=== PATIENT | female | born 1940 | race Hispanic/Latino ===

== ENCOUNTER 2021-08-22 11:35 | Emergency (ER) | payer MEDICARE ==
[~2021-08-22] VITALS: Ht 165.1 cm; Wt 65.8 kg
[2021-08-22 11:39] VITALS: BP 128/77
[2021-08-22] MEDS ORDERED: LORAZEPAM 0.5 MG TABLET PO SCH (12:00)
[2021-08-22 12:20] LABS: CREATININE 0.7 mg/dL (0.5-1.5); POTASSIUM 4.1 mmol/L (3.5-5.1)
[2021-08-22 12:24] LABS: ALBUMIN 3.9 g/dL (3.5-5.0); BILIRUBIN,TOTAL 0.3 mg/dL (0.2-1.0); TOTAL PROTEIN, SERUM 6.9 g/dL (6.0-8.3)
[2021-08-22 12:29] LABS: EOSINOPHILS % (AUTO) 6.8 % (0.0-8.0); HEMATOCRIT 33.4 % (36-48); LYMPHOCYTES % (AUTO) 10.1 % (21.0-51.0); MEAN CORPUSCULAR HEMOGLOBIN 31.3 pg (27.0-33.0); MEAN CORPUSCULAR HGB CONC 33.8 g/dL (32.0-36.0); MEAN CORPUSCULAR VOLUME 92.5 fL (79-99); MONOCYTES % (AUTO) 8.3 % (3.0-13.0); NEUTROPHILS % (AUTO) 73.4 % (40.0-77.0); PLATELET COUNT (AUTO) 222 K/uL (130-400); RED BLOOD CELL COUNT(AUTO) 3.61 MIL/uL (4.00-5.50); RED CELL DISTRIBUTION WIDTH 13.8 % (11.0-15.5); WHITE BLOOD COUNT (AUTO) 7.3 K/uL (4.8-10.8)
== END 2021-08-22 13:25 | disposition home or self-care (01) ==
LOC: EDH 11:35
DX: F41.9 Anxiety disorder, unspecified (principal); F43.0 Acute stress reaction; I10 Essential (primary) hypertension; M19.90 Unspecified osteoarthritis, unspecified site; F03.90 Unspecified dementia, unspecified severity, without behavioral disturbance, psychotic disturbance, mood disturbance, and anxiety
CPT/HCPCS: 36415; 71045; 80053; 84484; 85025

== ENCOUNTER 2024-10-12 18:59 | Observation (INO) | payer MEDICARE ==
[~2024-10-12] VITALS: Ht 152.4 cm; Wt 49.0 kg
--- NOTE | 2024-10-12 19:26 | ERN ---
ED Note History of Present Illness Stated Complaint: CONSTIPATION Chief Complaint: Constipation Time Seen by MD: 19:01 Dictation: Patient comes in she is telling me she had some pain in the chest. It has been some time ago she is not able to specify when per triage. She is coming in for constipation Allergies: Coded Allergies: No Allergy Information Available (Verified Allergy, Unknown, 08/22/21) Past Medical History Past Medical History: Arthritis, Dementia, Diabetes-Type II, High Cholesterol, Hypertension Surgical History: Unknown Review of System Dictation Constitutional: Negative for fever,chills, and weight loss Eyes: Negative for injury, pain,redness, and discharge ENT: Negative for injury,pain or swelling Cardiovascular: Chest pain Respiratory: Negative for shortness of breath, cough, and wheezing, Abdomen/GI: Negative for abdominal pain, nausea, vomiting, diarrhea, and constipation Back: Negative for injury and pain : Negative for injury, bleeding and discharge MS/Extremity: Negative for injury and deformity Skin: Negative for rash, and discoloration Neuro: Negative for headache, weakness, numbness, tingling, and seizure Psych: Negative for suicide ideation, homicidal ideation, and hallucinations Initial Vital Sign VS Vital Signs Date Time Temp Pulse Resp B/P (MAP) Pulse Ox O2 Delivery O2 Flow Rate FiO2 10/12/24 19:06 99.1 70 16 181/89 98 Room Air* 0 21 Physical Exam Dictation General: awake, alert, NAD Head/Face: Normocephalic, atraumatic Eyes: PERRL, EOMI, vision at baseline ENT: oral cavity clear, TMs clear, no signs of infection Neck: Trachea midline, supple, no nuchal rigidity Cardiovascular: RRR, normal S1/S2, No MRGs, no JVD Respiratory: CTAB, no respiratory distress, No rales or wheezes Abdomen: Soft, non-tender, non-distended, normal bowel sounds, no guarding or rebound. Skin: Warm, dry, normal turgor, no rash MS/Extremity: Pulses equal, no cyanosis, neurovascular intact, FROM Neuro: COAx4, GCS 15, strength 5/5, CN 2-12 intact, normal cerebellar exam, normal gait, Psych: Normal behavior, mood, and affect normal Results (Laboratory/Radiology) Laboratory/Radiology Laboratory Tests Test 10/12/24 20:11 10/12/24 22:44 10/13/24 03:39 White Blood Count 13.1 K/uL (4.8-10.8) H 9.3 K/uL (4.8-10.8) # Red Blood Count 4.00 MIL/uL (4.00-5.50) 3.40 MIL/uL (4.00-5.50) L Hemoglobin 12.3 g/dL (12.0-16.0) 10.4 g/dL (12.0-16.0) L Hematocrit 36.6 % (36-48) 30.9 % (36-48) L Mean Corpuscular Volume 91.5 fL (79-99) 90.9 fL (79-99) Mean Corpuscular Hemoglobin 30.8 pg (27.0-33.0) 30.6 pg (27.0-33.0) Mean Corpuscular Hemoglobin Concent 33.6 g/dL (32.0-36.0) 33.7 g/dL (32.0-36.0) Red Cell Distribution Width 12.7 % (11.0-15.5) 12.8 % (11.0-15.5) Platelet Count 239 K/uL (130-400) 200 K/uL (130-400) Mean Platelet Volume 9.7 fL (7.5-10.5) 10.1 fL (7.5-10.5) Immature Granulocyte % (Auto) 0.5 % (0-1) 0.4 % (0-1) Neutrophils (%) (Auto) 87.5 % (40.0-77.0) H 85.6 % (40.0-77.0) H Lymphocytes (%) (Auto) 3.8 % (21.0-51.0) L 4.5 % (21.0-51.0) L Monocytes (%) (Auto) 7.0 % (3.0-13.0) 8.0 % (3.0-13.0) Eosinophils (%) (Auto) 1.0 % (0.0-8.0) 1.3 % (0.0-8.0) Basophils (%) (Auto) 0.2 % (0.0-5.0) 0.2 % (0.0-5.0) Neutrophils # (Auto) 11.4 K/uL (1.8-7.7) H 7.9 K/uL (1.8-7.7) H Lymphocytes # (Auto) 0.5 K/uL (1.0-4.8) L 0.4 K/uL (1.0-4.8) L Monocytes # (Auto) 0.9 K/uL (0.1-1.0) 0.7 K/uL (0.1-1.0) Eosinophils # (Auto) 0.13 K/uL (0.00-0.70) 0.12 K/uL (0.00-0.70) Basophils # (Auto) 0.03 K/uL (0.00-0.20) 0.02 K/uL (0.00-0.20) Absolute Immature Granulocyte (auto 0.06 K/uL (0-1) 0.04 K/uL (0-1) Nucleated Red Blood Cells 0.0 % (0.0-0.19) 0.0 % (0.0-0.19) White Cell Morphology Comment See comments D-Dimer Quantitative (PE/DVT) 3005 ng/mL (0-500) *H Sodium Level 139 mmol/L (136-145) 141 mmol/L (136-145) Potassium Level 3.3 mmol/L (3.5-5.1) L 3.2 mmol/L (3.5-5.1) L Chloride Level 100 mmol/L (101-111) L 106 mmol/L (101-111) Carbon Dioxide Level 30 mmol/L (21-32) 28 mmol/L (21-32) Blood Urea Nitrogen 24 mg/dL (7-18) H 28 mg/dL (7-18) H Creatinine 0.9 mg/dL (0.5-1.0) 0.7 mg/dL (0.5-1.0) Glomerular Filtration Rate Calc 63 mL/min (>90) 85 mL/min (>90) Random Glucose 118 mg/dL (70-105) H 116 mg/dL (70-105) H Total Calcium 9.1 mg/dL (8.5-10.1) 8.6 mg/dL (8.5-10.1) Troponin I High Sensitivity 28 ng/L (4-50) 24 ng/L (4-50) Urine Color YELLOW (YELLOW) Urine Appearance CLEAR (CLEAR) Urine pH 6.0 (5.0-8.0) Urine Specific [place] 1.030 (1.001-1.031) Urine Protein 30 mg/dL (NEGATIVE) H Urine Glucose (UA) NEGATIVE mg/dL (NEGATIVE) Urine Ketones 5 mg/dL (NEGATIVE) H Urine Occult Blood NEGATIVE (NEGATIVE) Urine Nitrate NEGATIVE (NEGATIVE) Urine Bilirubin NEGATIVE mg/dL (NEGATIVE) Urine Urobilinogen 0.2 mg/dL (0.2-1.0) Urine Leukocyte Esterase NEGATIVE Efren/uL Urine RBC 2-5 /HPF (0-1) H Urine WBC 0-1 /HPF (0-1) Urine Bacteria RARE /HPF (None Seen) Hemoglobin A1c 6.3 % (4.0-6.0) H Estimated Average Glucose (eAG) 134 mg/dL (70-126) H Phosphorus Level 4.0 mg/dL (2.5-4.9) Magnesium Level 2.10 mg/dL (1.80-2.40) Thyroid Stimulating Hormone (TSH) 2.55 uIU/mL (0.36-3.74) ED Course ED Course Orders Procedure Category Date Status Time Cbc With Differential LAB 10/12/24 Complete 19:21 Chest 1vw RAD 10/12/24 Resulted 19:21 12 Lead Ekg Tracing- EKG 10/12/24 Logged Technical 19:21 Urinalysis Profile LAB 10/12/24 Complete 19:21 Troponin Poc Order LAB 10/12/24 Complete Only 19:21 Bedside Troponin-I LAB.ER 10/12/24 In Process (Poc) 19:21 Basic Metabolic Panel LAB 10/12/24 Complete 19:21 Ondansetron 4mg Inj PHA 10/12/24 Complete (Zofran 4mg Inj) 19:30 Ct Abdomen/Pelvis W/O CT 10/12/24 Resulted Contrast 19:23 Bedside Troponin-I LAB.ER 10/12/24 In Process (Poc) 20:46 Troponin I High LAB 10/12/24 Complete Sensitivity 22:03 Bedside Troponin-I LAB.ER 10/12/24 In Process (Poc) 22:03 Admit Orders ADM 10/12/24 Transmitted 22:53 Vital Signs Every 4 CPOE 10/12/24 Transmitted Hours 22:54 I&O Q Shift CPOE 10/12/24 Transmitted 22:54 Activity: Br W/Brp CPOE 10/12/24 Transmitted With Assist 22:54 Heart Healthy Diet DIET 10/13/24 Transmitted Breakfast O2 Order RT 10/12/24 Transmitted 22:54 Cbc With Differential LAB 10/13/24 Complete 04:00 Basic Metabolic Panel LAB 10/13/24 Complete 04:00 Magnesium LAB 10/13/24 Complete 04:00 Phosphorus LAB 10/13/24 Complete 04:00 D-Dimer LAB 10/12/24 Complete 23:00 Thyroid Stimulating LAB 10/13/24 Complete Hormone 04:00 Famotidine 20mg Tab PHA 10/13/24 In Process (Pepcid 20mg Tab) 09:00 Enoxaparin Sodium 40 PHA 10/13/24 In Process Mg/0.4 Ml (Lovenox) 09:00 Acetaminophen 325 Tab PHA 10/12/24 In Process (Tylenol 325mg Tab 23:00 Acetaminophen 650mg PHA 10/12/24 In Process Supp (Tylenol 650mg 23:00 Lactulose 20 Gm/30 Ml PHA 10/12/24 In Process Udcup (Constulose 23:00 Docusate Sodium 100 PHA 10/12/24 In Process Mg Cap (Colace 100mg 23:00 Temazepam 15 Mg Cap PHA 10/12/24 In Process (Restoril 15 Mg Cap) 23:00 Ondansetron 4mg Inj PHA 10/12/24 In Process (Zofran 4mg Inj) 23:00 Labetalol 20mg Syg PHA 10/12/24 In Process (Trandate 20mg Syg) 23:00 Telemetry Monitoring CPOE 10/12/24 Transmitted 22:54 Initiate PATRIC 10/12/24 In Process Hyperglycemia Protoco 22:54 Insulin Regular, PHA 10/13/24 In Process Human 3ml (Humulin R 07:30 Hemoglobin A1c LAB 10/13/24 Complete 04:00 Troponin I High LAB 10/13/24 Complete Sensitivity 02:00 Troponin I High LAB 10/13/24 Logged Sensitivity 08:00 Troponin I High LAB 10/13/24 Logged Sensitivity 14:00 Troponin I High LAB 10/13/24 Logged Sensitivity 20:00 Nitroglycerin 0.4mg PHA 10/12/24 In Process Sl Tab (Nitrostat) 23:30 12 Lead Ekg Tracing- EKG 10/13/24 Logged Technical 04:00 Aspirin 81mg Chew Tab PHA 10/13/24 In Process (Aspirin 81mg Chew 09:00 Aspirin 81mg Chew Tab PHA 10/12/24 Complete (Aspirin 81mg Chew 23:30 Atorvastatin 40mg PHA 10/12/24 In Process (Lipitor 40mg) 23:10 Lidocaine (Lidocaine PHA 10/13/24 Complete Patch 4%) 00:00 Ct Chest Pe Protocol CT 10/13/24 Logged Wwo Cont 00:55 Us Venous Doppler US 10/13/24 Taken Bilateral 00:55 Iohexol (Omnipaque) PHA 10/13/24 Complete 01:13 Current Medications Medications (Trade) Dose Ordered Sig/Rossana Route PRN Reason Start Time Stop Time Status Last Admin Dose Admin Ondansetron HCl (zoFRAN 4MG INJ) 4 mg ONCE ONCE IVP 10/12/24 19:30 10/12/24 19:31 DC Vital Signs Date Time Temp Pulse Resp B/P (MAP) Pulse Ox O2 Delivery O2 Flow Rate FiO2 10/13/24 03:48 98.4 18 136/64 97 Room Air* 0 10/13/24 01:43 67 18 147/79 98 Room Air* 0 10/13/24 00:43 73 14 146/69 97 Room Air* 0 10/13/24 00:21 75 178/82 10/13/24 00:14 76 16 178/82 98 Room Air* 0 10/12/24 22:53 95 Room Air* 0 10/12/24 22:15 98.8 78 20 168/89 97 Room Air* 0 10/12/24 19:08 99.1 70 16 181/89 98 Room Air 0 10/12/24 19:06 99.1 70 16 181/89 98 Room Air* 0 21 Medical Decision Making MDM Unsure about patient's baseline if she has dementia. By the way given her age and risk factors. To ACS workup. Abdominal pain workup DX & DISP Disposition: Inpatient Departure Impression: Primary Impression: Hypertension Condition: Stable Referrals: MAIRA JACKSON MD (PCP) KARON PIPER MD Oct 12, 2024 19:26
[2024-10-12] MEDS: ondanSETRON 4MG INJ IVP ONE (19:30)
--- NOTE | 2024-10-12 20:06 | HMCIMG ---
CHEST 1VW HISTORY: Chest pain COMPARISON: 08/22/2021 FINDINGS: A frontal projection of the chest was obtained. Prominent interstitial markings are seen with possible superimposed infiltrates. The heart is normal in size. Degenerative changes are seen. Aortic calcifications are seen. IMPRESSION: 1. Prominent interstitial markings are seen with possible superimposed infiltrates.
--- NOTE | 2024-10-12 20:10 | HMCIMG ---
CT ABDOMEN/PELVIS W/O CONTRAST HISTORY: Abdominal pain COMPARISON: None TECHNIQUE: Multiple sequential axial images of the abdomen and pelvis were obtained from the dome of the diaphragm through symphysis pubis. Patient was not given contrast through intravenous route. Oral contrast was not given. FINDINGS: No pleural effusion is seen bilaterally. There is no evidence of parenchymal disease or pulmonary nodule of the visualized lower lungs. Degenerative changes of the thoracolumbar spine are present. The heart is not enlarged. Coronary arterial calcifications are seen. Endplate degenerative changes with disc space narrowing are seen at L4-5 and L5-S1 levels. There are intrahepatic biliary air. Gallbladder is distended with small amount of air collection. This gallstone in the gallbladder. Patient was given contrast previously with contrast in the bladder. The liver, spleen, adrenal glands and pancreas are unremarkable. There is no evidence of hydronephrosis bilaterally. No evidence of renal stone is seen. Fecal material is seen in the colon. There are normal size retroperitoneal and mesenteric lymph nodes. No ascites is seen. Atherosclerotic changes are present. Calcification is seen within the uterus is suspicious for fibroid uterus. Postop changes are seen of left proximal femur. Pelvic sidewalls are symmetric bilaterally. Bladder is well distended without wall thickening. IMPRESSION: 1. Large amount of fecal material is seen in the colon suggestive of constipation. Gallstones are seen in the distended gallbladder. There appears to be common duct stone. Common duct measures [address] was performed with one or more following dose reduction techniques: automated exposure control, adjustment of the mA and kv according to patient's size, or use of a iterative reconstruction technique.
[2024-10-12 20:21] LABS: BASOPHILS # (AUTO) 0.03 K/uL (0.00-0.20); BASOPHILS % (AUTO) 0.2 % (0.0-5.0); EOSINOPHILS # (AUTO) 0.13 K/uL (0.00-0.70); HEMATOCRIT 36.6 % (36-48); IMMATURE GRANULOCYTE ABSOLUTE 0.06 K/uL (0-1); LYMPHOCYTES # (AUTO) 0.5 K/uL (1.0-4.8); LYMPHOCYTES % (AUTO) 3.8 % (21.0-51.0); MEAN CORPUSCULAR HEMOGLOBIN 30.8 pg (27.0-33.0); MEAN CORPUSCULAR HGB CONC 33.6 g/dL (32.0-36.0); MEAN CORPUSCULAR VOLUME 91.5 fL (79-99); MONOCYTES # (AUTO) 0.9 K/uL (0.1-1.0); NEUTROPHILS # (AUTO) 11.4 K/uL (1.8-7.7); NEUTROPHILS % (AUTO) 87.5 % (40.0-77.0); PLATELET COUNT (AUTO) 239 K/uL (130-400); RED CELL DISTRIBUTION WIDTH 12.7 % (11.0-15.5); WHITE BLOOD COUNT (AUTO) 13.1 K/uL (4.8-10.8)
[2024-10-12 20:34] LABS: CREATININE 0.9 mg/dL (0.5-1.0); POTASSIUM 3.3 mmol/L (3.5-5.1)
--- NOTE | 2024-10-12 22:10 | NUR ---
assumed pt care at this time
[2024-10-12 22:53] VITALS: O2SAT 95
[2024-10-12 22:55] LABS: APPEARANCE,URINE CLEAR (CLEAR); BILIRUBIN,URINE NEGATIVE (NEGATIVE); COLOR,URINE YELLOW (YELLOW); GLUCOSE, URINE (UA) NEGATIVE (NEGATIVE); KETONES,URINE 5 mg/dL (NEGATIVE); LEUKOCYTE ESTERASE ,URINE NEGATIVE Leu/uL (NEGATIVE); NITRATE,URINE NEGATIVE (NEGATIVE); OCCULT BLOOD,URINE NEGATIVE (NEGATIVE); PROTEIN,URINE 30 mg/dL (NEGATIVE); UROBILINOGEN,URINE 0.2 mg/dL (0.2-1.0)
--- NOTE | 2024-10-12 22:55 | HP ---
[facility] HISTORY & PHYSICAL Date Patient Seen: Oct 12, 2024 Time of Visit: 22:55 Supervising Physician: Dr. Juan Diego Curtis Primary Care Physician: Dr. Zachery Mathis Outpatient Specialists: Inpatient Consults: PROBLEM LIST: Cholelithiasis Common duct stones Leukocytosis Hypokalemia Acute mid back pain Critically elevated troponin, rule out DVT and PE Possible acute chest pain (per family member), x2 negative troponin (Patient denied having chest pain.) Acute constipation Uncontrolled hypertension Chronic problem list: arthritis, dementia, DM type 2, hypercholesteremia, hypertension HPI: Ms. Worrell is a 84-year-old female with a history of arthritis, dementia, DM type 2, hypercholesteremia, hypertension who presented to [facility] for evaluation of a chest pain, constipation, and back pain. RN reports that son brought patient for chest pain. Son left shortly after he brought the patient. The patient is a poor historian due to dementia. The patient states that she did not have chest pain. She states that she told her son and nephew who she lives with that she had severe mid back pain which prompted the ED visit. The patient reports the back pain is exacerbated by movement and reports that she believes it is due to her constipation. Patient denied having chest pain. Troponin x2 WNL. UA negative for leuk EST. CT abdomen and pelvis without contrast: Large amount of fecal material is seen in the colon suggestive of constipation. Gallstones are seen in the distended gallbladder. There appears to be common duct stone. Common duct measures 8 mm. Remarkable lab results: WBCs 13.1, K 3.3, chloride 100, BUN 24, creatinine 0.9, glucose 118, D-dimer 3005. I went to assess the patient at bedside. Patient reports back pain is improved with lidocaine patch. Patient continues to deny any chest pain. No family at bedside to sign consent for CTA chest PE protocol. I informed patient of remarkable labs, diagnostics, and plan of care. Patient verbalized understanding and is in agreement with the plan. Plan and assessment as listed below. PAST MEDICAL HX: see above PAST SURGICAL HX: noncontributory SOCIAL HISTORY: No tobacco, ETOH, or illicit drug use Coded Allergies: No Allergy Information Available (Verified Allergy, Unknown, 08/22/21) REVIEW OF SYSTEMS: Unable to obtain ROS from patient due to medical history, dementia. PHYSICAL EXAM: GENERAL: Alert, awake oriented x 3 (person, place, situation. Not oriented to time/month) HEENT: EOMI, Sclera non icteric, moist mucosa NECK: Supple, no JVD, trachea midline LUNGS: Clear breath sounds bilaterally. No wheezes HEART: Regular rate and rhythm. Normal S1 and S2, without murmurs ABD: Abdomen soft, nontender. Bowel sounds present EXT: No clubbing cyanosis or edema NEURO: Alert and oriented x3, follows commands. No neuro deficits noted. Vital Signs (last 8hr) Date Time Temp Pulse Resp B/P (MAP) Pulse Ox O2 Delivery O2 Flow Rate FiO2 10/12/24 19:08 99.1 70 16 181/89 98 Room Air 0 10/12/24 19:06 99.1 70 16 181/89 98 Room Air* 0 21 LABS: Hematology Labs: Test 10/12/24 20:11 Range/Units White Blood Count 13.1 H 4.8-10.8 K/uL Red Blood Count 4.00 4.00-5.50 MIL/uL Hemoglobin 12.3 12.0-16.0 g/dL Hematocrit 36.6 36-48 % Mean Corpuscular Volume 91.5 79-99 fL Mean Corpuscular Hemoglobin 30.8 27.0-33.0 pg Mean Corpuscular Hemoglobin Concent 33.6 32.0-36.0 g/dL Red Cell Distribution Width 12.7 11.0-15.5 % Platelet Count 239 130-400 K/uL Mean Platelet Volume 9.7 7.5-10.5 fL Immature Granulocyte % (Auto) 0.5 0-1 % Neutrophils (%) (Auto) 87.5 H 40.0-77.0 % Lymphocytes (%) (Auto) 3.8 L 21.0-51.0 % Monocytes (%) (Auto) 7.0 3.0-13.0 % Eosinophils (%) (Auto) 1.0 0.0-8.0 % Basophils (%) (Auto) 0.2 0.0-5.0 % Neutrophils # (Auto) 11.4 H 1.8-7.7 K/uL Lymphocytes # (Auto) 0.5 L 1.0-4.8 K/uL Monocytes # (Auto) 0.9 0.1-1.0 K/uL Eosinophils # (Auto) 0.13 0.00-0.70 K/uL Basophils # (Auto) 0.03 0.00-0.20 K/uL Absolute Immature Granulocyte (auto 0.06 0-1 K/uL Nucleated Red Blood Cells 0.0 0.0-0.19 % White Cell Morphology Comment See comments Chemistry Labs: Test 10/12/24 20:11 Range/Units Sodium Level 139 136-145 mmol/L Potassium Level 3.3 L 3.5-5.1 mmol/L Chloride Level 100 L 101-111 mmol/L Carbon Dioxide Level 30 21-32 mmol/L Blood Urea Nitrogen 24 H 7-18 mg/dL Creatinine 0.9 0.5-1.0 mg/dL Glomerular Filtration Rate Calc 63 >90 mL/min Random Glucose 118 H 70-105 mg/dL Total Calcium 9.1 8.5-10.1 mg/dL Troponin I High Sensitivity 28 4-50 ng/L DIAGNOSTICS / RADIOLOGY RESULTS: [ ] PLAN Admit to medical floor with telemetry monitoring. P.r.n. medications for: Pain management, nausea, vomiting, constipation, hypertension. Reconcile home medications once available. Obtain sonogram all the gallbladder. Aspirin 81 mg p.o. daily. Atorvastatin 40 mg p.o. daily. Trend troponin and EKGs. Obtain echocardiogram. Monitor renal and liver function. Monitor electrolytes and treat accordingly. Glucometer checks a.c. and HS with insulin regular sliding scale. Blood pressure 4 hours and p.r.n.. DVT and GI prophylaxis: Pepcid and Lovenox. A.m. labs. NEURO: Minimize central acting medications as possible. Maintain fall precautions, adequate lighting during the day PULMONARY: Supplemental 02 as needed. Maintain aspiration precautions at all times CARDIOVASCULAR: Follow hemodynamics. Vital signs per facility protocol GI & NUTRITION: Continue with nutritional support. Continue stool softeners and laxatives as needed. KIDNEYS & ELECTROLYTES: Strict monitoring of intake, output and overall fluid balance. Avoid nephrotoxic medications to the extent possible. Medications to be dosed according to renal function. Monitor electrolytes and replace as needed ENDOCRINE: Maintain blood glucose between 100-180 at all times. Hypoglycemia protocol in place INFECTIOUS DISEASE: Trend temperature, WBC and procalcitonin level Follow cultures, deescalate antibiotics as soon as possible. Panculture if new onset fever ONCOLOGY/HEMATOLOGY/COAGULATION: Monitor for s/s of bleeding Monitor hemoglobin, coagulation studies as needed SKIN: Pressure ulcer prevention per facility protocol Specialty mattress ORTHO/REHAB: Continue PT/OT Prophylaxis: Continue GI and DVT prophylaxis Code Status: Full Resuscitation Disposition: JASS RENDON Oct 12, 2024 22:55
[2024-10-12] MEDS ORDERED: TEMAZepam 15 MG CAPSULE PO PRN (23:00)
[2024-10-12] MEDS ORDERED: doCUSate SODIUM 100 MG CAP PO PRN (23:00)
[2024-10-12] MEDS ORDERED: acetaMINOPHEN 650 MG SUPPOSITORY RC PRN (23:00)
[2024-10-12] MEDS ORDERED: ondanSETRON 4MG INJ IVP PRN (23:00)
--- NOTE | 2024-10-12 23:00 | NUR ---
unable to reconcile medication due to patient not remembering names or dosages. no family members at bedside.
[2024-10-12 23:07] LABS: ADD UA MICROSCOPIC YES
[2024-10-12 23:09] LABS: BACTERIA,URINE RARE /HPF (None Seen); WBC,URINE 0-1 /HPF (0-1)
[2024-10-12] MEDS ORDERED: NITROGLYCERIN 0.4 MG SL TAB SL PRN (23:30)
[2024-10-12] MEDS: ASPIRIN 81MG CHEW TAB PO ONE (23:53)
[2024-10-12] MEDS: LACTULOSE 20 GM/30 ML UDCUP PO PRN (23:53)
[2024-10-12] MEDS: atorVAStatin 40 MG TABLET PO SCH (23:53)
[2024-10-12] MEDS: LIDOCAINE 4% ADH..PATCH TP ONE (23:53)
[2024-10-13] MEDS: LAbetaLOL 20MG SYG IV PRN (00:21)
--- NOTE | 2024-10-13 01:07 | NUR ---
patient has hx of dementia, attempted to call patient's son for cta consent no answer, naila donovan made aware.
[2024-10-13] MEDS ORDERED: IOHEXOL 350 MG/ML 100ML INFUS..BTL IV ONE (01:13)
--- NOTE | 2024-10-13 01:18 | NUR ---
CT ON HOLD PENDING CONSENT, PT HAS DEMENTIA. SON IS NO PRESENT AT THIS TIME TO CONSENT
[2024-10-13 03:46] LABS: BASOPHILS # (AUTO) 0.02 K/uL (0.00-0.20); BASOPHILS % (AUTO) 0.2 % (0.0-5.0); EOSINOPHILS # (AUTO) 0.12 K/uL (0.00-0.70); EOSINOPHILS % (AUTO) 1.3 % (0.0-8.0); HEMATOCRIT 30.9 % (36-48); IMMATURE GRANULOCYTE ABSOLUTE 0.04 K/uL (0-1); LYMPHOCYTES # (AUTO) 0.4 K/uL (1.0-4.8); LYMPHOCYTES % (AUTO) 4.5 % (21.0-51.0); MEAN CORPUSCULAR HEMOGLOBIN 30.6 pg (27.0-33.0); MEAN CORPUSCULAR HGB CONC 33.7 g/dL (32.0-36.0); MEAN CORPUSCULAR VOLUME 90.9 fL (79-99); MONOCYTES # (AUTO) 0.7 K/uL (0.1-1.0); NEUTROPHILS # (AUTO) 7.9 K/uL (1.8-7.7); NEUTROPHILS % (AUTO) 85.6 % (40.0-77.0); PLATELET COUNT (AUTO) 200 K/uL (130-400); RED CELL DISTRIBUTION WIDTH 12.8 % (11.0-15.5); WHITE BLOOD COUNT (AUTO) 9.3 K/uL (4.8-10.8)
[2024-10-13 04:01] LABS: HEMOGLOBIN A1C 6.3 % (4.0-6.0)
[2024-10-13 04:10] LABS: CREATININE 0.7 mg/dL (0.5-1.0); POTASSIUM 3.2 mmol/L (3.5-5.1)
[2024-10-13 04:11] LABS: MAGNESIUM 2.1 mg/dL (1.80-2.40); THYROID STIMULATING HORMONE 2.55 uIU/mL (0.36-3.74)
--- NOTE | 2024-10-13 05:19 | EKG ---
[facility] Test Date: 2024-10-12 Test Time: 19:42:30 Pat Name: SAI WEN Department: EDHIP Room: ED 14 Gender: F Air Quality Instrument Specialist: [id number] : 1940 Requested By: KARON PIPER Order Number: [id number] Reading MD: Sammi Nguyen Measurements Intervals [place] Rate: 73 P: -21 AL: 120 QRS: 0 QRSD: 133 T: 2 QT: 404 QTc: 446 Interpretive Statements Sinus rhythm Right bundle branch block Borderline ST elevation, lateral leads No previous ECG available for comparison Electronically Signed On 10-13-2024 18:09:55 TINT LAYER by Sammi Nguyen Please click the below link to view image of tracing.
--- NOTE | 2024-10-13 05:19 | EKG ---
[facility] Test Date: 2024-10-13 Test Time: 04:19:54 Pat Name: SAI WEN Department: EDHIP Room: ED 14 Gender: F Geospatial Developer: [id number] : 1940 Requested By: JASS ROMAN Order Number: [id number] Reading MD: Sammi Nguyen Measurements Intervals [place] Rate: 66 P: -14 MN: 125 QRS: 0 QRSD: 137 T: 7 QT: 443 QTc: 465 Interpretive Statements Sinus rhythm Right bundle branch block Compared to ECG 10/12/2024 19:42:30 ST (T wave) deviation no longer present Electronically Signed On 10-13-2024 18:09:08 CLOTH MERCERIZING SUPERVISOR by Sammi Nguyen Please click the below link to view image of tracing.
--- NOTE | 2024-10-13 05:37 | NUR ---
attempted to contact patient's son, no answer at this time
[2024-10-13] MEDS: PoTASSium chl 10% ELIXIR 20MEQ 20 MEQ/15 ML UDCUP PO PRN (05:57)
[2024-10-13] MEDS ORDERED: PoTASSium chloRIDE 20MEQ ER 20 MEQ ERTAB PO PRN ×2 (06:00)
[2024-10-13] MEDS ORDERED: PoTASSium chloRIDE 10MEQ/100ML 100 ML IV PRN (06:00)
[2024-10-13] MEDS ORDERED: MAGNESIUM 2GM PREMIX 50ML 50 ML IV PRN (06:00)
[2024-10-13] MEDS ORDERED: PoTASSium chl 10% ELIXIR 20MEQ 20 MEQ/15 ML UDCUP PO PRN (06:00)
[2024-10-13] MEDS ORDERED: PoTASSium chloRIDE 20MEQ/100ML 100 ML IV PRN (06:00)
[2024-10-13] MEDS: INSULIN humuLIN R 100 UNIT/ML 3ML SQ SCH (07:30)
[2024-10-13] MEDS: ENOXAPARIN SODIUM 40 MG/0.4 ML SYRINGE SQ SCH (08:26)
[2024-10-13] MEDS: BisaCODYL 10 MG SUPP.RECT RC ONE (08:26)
[2024-10-13] MEDS: FAMOTIDINE 20MG TAB PO SCH (08:27)
[2024-10-13] MEDS: BisaCODYL 5 MG TABLET.DR PO SCH (08:27)
[2024-10-13] MEDS: ASPIRIN 81MG CHEW TAB PO SCH (08:27)
--- NOTE | 2024-10-13 08:58 | HMCIMG ---
Exam Type: US ABDOMINAL RUQ\E\LTD Clinical Information: cholelithiasis. r/o common duct stone Comparison: None Findings: The liver shows normal echogenicity and size. No hepatic lesions are seen. Doppler evaluation shows patent portal and hepatic veins. The gallbladder shows cholelithiasis and sludge. No acute or chronic inflammation is noted. The gallbladder is hydropic. The gallbladder wall measures 2 mm No bile duct dilatation is noted. The common bile duct measures 4 mm. The right kidney measures 9.7 x 4.2 cm, and shows no hydronephrosis or calculi, masses or other abnormalities. The pancreas is obscured. The aorta and inferior vena cava show no significant abnormalities. IMPRESSION: Cholelithiasis and gallbladder sludge
--- NOTE | 2024-10-13 09:01 | HMCIMG ---
Exam Type: US VENOUS DOPPLER BILATERAL Clinical Information: elevated DDIMER Comparison: None Findings: The examination shows normal deep venous system. There is normal compressibility at all levels. There is no intraluminal clot. There is no occlusion. Adequate response is obtained on augmentation. Impression: No evidence of DVT.
[2024-10-13] MEDS: polyETHYLene GLYCol 3350 17 GM POWD.PACK PO SCH (09:26)
--- NOTE | 2024-10-13 11:39 | NUR ---
CT PE ON HOLD NO CONSENT FROM FAMILY MEMBER AT THIS TIME. PT REFUSING EXAM WANTING TO GET DISCHARGED. MUNA DOWNEY WILL CALL BACK.
--- NOTE | 2024-10-13 12:18 | PN ---
[facility] PROGRESS NOTE Date Patient Seen: Oct 13, 2024 Time of Visit: 12:06 Supervising Physician: Dr Acharya Primary Care Physician: Dr. Zachery Mathis Outpatient Specialists: Inpatient Consults: PROBLEM LIST: Choledocholithiasis ruled out by US Leukocytosis Hypokalemia Possible acute chest pain (per family member), x2 negative troponin (Patient denied having chest pain.) Acute constipation Uncontrolled hypertension Chronic problem list: arthritis, dementia, DM type 2, hypercholesteremia, hypertension Plan Summary: Supplemental oxygen as needed [id number] g daily Bisacodyl 10 mg daily KUB in a.m. Start on clear liquid diet and advance as tolerated PT to evaluate and treat Out of bed to chair and ambulate Dispo: Home INTERVAL HISTORY: Ms. Worrell is a 84-year-old female with a history of arthritis, dementia, DM type 2, hypercholesteremia, hypertension who presented to [facility] for evaluation of a chest pain, constipation, and back pain. RN reports that son brought patient for chest pain. Son left shortly after he brought the patient. The patient is a poor historian due to dementia. The patient states that she did not have chest pain. She states that she told her son and nephew who she lives with that she had severe mid back pain which prompted the ED visit. The patient reports the back pain is exacerbated by movement and reports that she believes it is due to her constipation. Patient denied having chest pain. Troponin x2 WNL. UA negative for leuk EST. CT abdomen and pelvis without contrast: Large amount of fecal material is seen in the colon suggestive of constipation. Gallstones are seen in the distended gallbladder. There appears to be common duct stone. Common duct measures 8 mm. Remarkable lab results: WBCs 13.1, K 3.3, chloride 100, BUN 24, creatinine 0.9, glucose 118, D-dimer 3005. I went to assess the patient at bedside. Patient reports back pain is improved with lidocaine patch. Patient continues to deny any chest pain. No family at bedside to sign consent for CTA chest PE protocol. I informed patient of remarkable labs, diagnostics, and plan of care. Patient verbalized understanding and is in agreement with the plan. Plan and assessment as listed below. 10/13 - patient is seen and evaluated at the ED. Patient is seen sitting up in stretcher does not appear to be in any acute distress at this time. Patient is awake alert and oriented x2. Patient does periods of confusion secondary to her dementia. The patient denies any chest discomfort, chest pain or dyspnea at this time. Troponins have been negative. Patient had a CT of the abdomen which showed constipation as well as gallstones and seen a distended gallbladder. Patient had abdominal ultrasound which showed cholelithiasis and gallbladder sludge without bile duct dilatation. On exam patient has negative Patel's sign. Patient to be administered stool softeners. Patient is adamant she wants to go home. We will obtain a KUB after she has bowel movement and possibly sent home. Vital signs are stable. Labs show white count has trended down within normal limits. Labs did show some electrolyte derangements which have been replaced via protocol. We will repeat labs. We will plan to DC home in a.m. REVIEW OF SYSTEMS: Unable to obtain ROS from patient due to medical history, dementia. PHYSICAL EXAM: GENERAL: Alert, awake oriented x 3 (person, place, situation. Not oriented to time/month) HEENT: EOMI, Sclera non icteric, moist mucosa NECK: Supple, no JVD, trachea midline LUNGS: Clear breath sounds bilaterally. No wheezes HEART: Regular rate and rhythm. Normal S1 and S2, without murmurs ABD: Abdomen soft, nontender. Bowel sounds present EXT: No clubbing cyanosis or edema NEURO: Alert and oriented x3, follows commands. No neuro deficits noted. Vital Signs (last 8hr) Date Time Temp Pulse Resp B/P (MAP) Pulse Ox O2 Delivery O2 Flow Rate FiO2 10/13/24 08:33 99.0 72 16 142/72 96 Room Air* 0 21 10/13/24 06:20 98.2 72 16 142/72 96 Room Air* 0 21 LABS: Hematology Labs: Test 10/13/24 03:39 10/12/24 20:11 Range/Units White Blood Count 9.3 # 4.8-10.8 K/uL Red Blood Count 3.40 L 4.00-5.50 MIL/uL Hemoglobin 10.4 L 12.0-16.0 g/dL Hematocrit 30.9 L 36-48 % Mean Corpuscular Volume 90.9 79-99 fL Mean Corpuscular Hemoglobin 30.6 27.0-33.0 pg Mean Corpuscular Hemoglobin Concent 33.7 32.0-36.0 g/dL Red Cell Distribution Width 12.8 11.0-15.5 % Platelet Count 200 130-400 K/uL Mean Platelet Volume 10.1 7.5-10.5 fL Immature Granulocyte % (Auto) 0.4 0-1 % Neutrophils (%) (Auto) 85.6 H 40.0-77.0 % Lymphocytes (%) (Auto) 4.5 L 21.0-51.0 % Monocytes (%) (Auto) 8.0 3.0-13.0 % Eosinophils (%) (Auto) 1.3 0.0-8.0 % Basophils (%) (Auto) 0.2 0.0-5.0 % Neutrophils # (Auto) 7.9 H 1.8-7.7 K/uL Lymphocytes # (Auto) 0.4 L 1.0-4.8 K/uL Monocytes # (Auto) 0.7 0.1-1.0 K/uL Eosinophils # (Auto) 0.12 0.00-0.70 K/uL Basophils # (Auto) 0.02 0.00-0.20 K/uL Absolute Immature Granulocyte (auto 0.04 0-1 K/uL Nucleated Red Blood Cells 0.0 0.0-0.19 % White Cell Morphology Comment See comments Chemistry Labs: Test 10/13/24 08:12 10/13/24 07:46 10/13/24 03:39 Range/Units Whole Blood Glucose 134 H 70-110 MG/DL Troponin I High Sensitivity 24 4-50 ng/L Sodium Level 141 136-145 mmol/L Potassium Level 3.2 L 3.5-5.1 mmol/L Chloride Level 106 101-111 mmol/L Carbon Dioxide Level 28 21-32 mmol/L Blood Urea Nitrogen 28 H 7-18 mg/dL Creatinine 0.7 0.5-1.0 mg/dL Glomerular Filtration Rate Calc 85 >90 mL/min Random Glucose 116 H 70-105 mg/dL Hemoglobin A1c 6.3 H 4.0-6.0 % Estimated Average Glucose (eAG) 134 H 70-126 mg/dL Total Calcium 8.6 8.5-10.1 mg/dL Phosphorus Level 4.0 2.5-4.9 mg/dL Magnesium Level 2.10 1.80-2.40 mg/dL Thyroid Stimulating Hormone (TSH) 2.55 0.36-3.74 uIU/mL Coagulation Labs: Test 10/12/24 20:11 Range/Units D-Dimer Quantitative (PE/DVT) 3005 *H 0-500 ng/mL DIAGNOSTICS / RADIOLOGY RESULTS: PATIENT: SAI WORRELL MR#: [id number] : 1940 SEX: F AGE: 84 LOCATION: [facility] ORDER 0715 STATUS: ADM IN REPORT#: [id number] SERVICE 0713 REASON: cholelithiasis. r/o common duct stone ORDERING PHYSICIAN: JASS ROMANP PROCEDURE: ABDRUQLTD - US ABDOMINAL RUQ\LTD Exam Type: US ABDOMINAL RUQ\E\LTD Clinical Information: cholelithiasis. r/o common duct stone Comparison: None Findings: The liver shows normal echogenicity and size. No hepatic lesions are seen. Doppler evaluation shows patent portal and hepatic veins. The gallbladder shows cholelithiasis and sludge. No acute or chronic inflammation is noted. The gallbladder is hydropic. The gallbladder wall measures 2 mm No bile duct dilatation is noted. The common bile duct measures 4 mm. The right kidney measures 9.7 x 4.2 cm, and shows no hydronephrosis or calculi, masses or other abnormalities. The pancreas is obscured. The aorta and inferior vena cava show no significant abnormalities. IMPRESSION: Cholelithiasis and gallbladder sludge DICTATED BY: ANALIA RICE MD DATE: 10/13/2454 ELECTRONICALLY SIGNED BY: ANALIA RICE MD DATE: 10/13/2458 PATIENT: SAI WORRELL MR#: [id number] : 1940 SEX: F AGE: 84 LOCATION: [facility] ORDER 0059 STATUS: ADM IN [facility] REPORT#: [id number] SERVICE 0055 REASON: elevated DDIMER ORDERING PHYSICIAN: JASS ROMAN CAREER COUNSELOR PROCEDURE: VENOUS JOSÉ - US VENOUS DOPPLER BILATERAL Exam Type: US VENOUS DOPPLER BILATERAL Clinical Information: elevated DDIMER Comparison: None Findings: The examination shows normal deep venous system. There is normal compressibility at all levels. There is no intraluminal clot. There is no occlusion. Adequate response is obtained on augmentation. Impression: No evidence of DVT. DICTATED BY: ANALIA RICE MD DATE: 10/13/2459 ELECTRONICALLY SIGNED BY: ANALIA RICE MD DATE: 10/13/24900 PATIENT: SAI WORRELL MR#: [id number] : 1940 SEX: F AGE: 84 LOCATION: [facility] ORDER 23 STATUS: REG REPORT#: [id number] SERVICE 22 REASON: ABD PAIN ORDERING PHYSICIAN: KARON PIPER MD PROCEDURE: ABD PEL WO - CT ABDOMEN/PELVIS W/O CONTRAST CT ABDOMEN/PELVIS W/O CONTRAST HISTORY: Abdominal pain COMPARISON: None TECHNIQUE: Multiple sequential axial images of the abdomen and pelvis were obtained from the dome of the diaphragm through symphysis pubis. Patient was not given contrast through intravenous route. Oral contrast was not given. FINDINGS: No pleural effusion is seen bilaterally. There is no evidence of parenchymal disease or pulmonary nodule of the visualized lower lungs. Degenerative changes of the thoracolumbar spine are present. The heart is not enlarged. Coronary arterial calcifications are seen. Endplate degenerative changes with disc space narrowing are seen at L4-5 and L5-S1 levels. There are intrahepatic biliary air. Gallbladder is distended with small amount of air collection. This gallstone in the gallbladder. Patient was given contrast previously with contrast in the bladder. The liver, spleen, adrenal glands and pancreas are unremarkable. There is no evidence of hydronephrosis bilaterally. No evidence of renal stone is seen. Fecal material is seen in the colon. There are normal size retroperitoneal and mesenteric lymph nodes. No ascites is seen. Atherosclerotic changes are present. Calcification is seen within the uterus is suspicious for fibroid uterus. Postop changes are seen of left proximal femur. Pelvic sidewalls are symmetric bilaterally. Bladder is well distended without wall thickening. IMPRESSION: 1. Large amount of fecal material is seen in the colon suggestive of constipation. Gallstones are seen in the distended gallbladder. There appears to be common duct stone. Common duct measures [address] was performed with one or more following dose reduction techniques: automated exposure control, adjustment of the mA and kv according to patient's size, or use of a iterative reconstruction technique. DICTATED BY: EVELYN LEAL MD DATE: 10/12/242004 ELECTRONICALLY SIGNED BY: EVELYN LEAL MD DATE: 10/12/242009 IMAGING REPORT Signed PATIENT: SAI WORRELL MR#: [id number] : 1940 SEX: F AGE: 84 LOCATION: [facility] ORDER 21 STATUS: REG REPORT#: [id number] SERVICE 20 REASON: cp ORDERING PHYSICIAN: KARON PIPER MD PROCEDURE: CXR1VW - CHEST 1VW CHEST 1VW HISTORY: Chest pain COMPARISON: 08/22/2021 FINDINGS: A frontal projection of the chest was obtained. Prominent interstitial markings are seen with possible superimposed infiltrates. The heart is normal in size. Degenerative changes are seen. Aortic calcifications are seen. IMPRESSION: 1. Prominent interstitial markings are seen with possible superimposed infiltrates. DICTATED BY: EVELYN LEAL MD DATE: 10/12/242002 ELECTRONICALLY SIGNED BY: EVELYN LEAL MD DATE: 10/12/242005 PLAN Admit to medical floor with telemetry monitoring. P.r.n. medications for: Pain management, nausea, vomiting, constipation, hypertension. Reconcile home medications once available. Obtain sonogram all the gallbladder. Aspirin 81 mg p.o. daily. Atorvastatin 40 mg p.o. daily. Trend troponin and EKGs. Obtain echocardiogram. Monitor renal and liver function. Monitor electrolytes and treat accordingly. Glucometer checks a.c. and HS with insulin regular sliding scale. Blood pressure 4 hours and p.r.n.. DVT and GI prophylaxis: Pepcid and Lovenox. A.m. labs. NEURO: Minimize central acting medications as possible. Maintain fall precautions, adequate lighting during the day PULMONARY: Supplemental 02 as needed. Maintain aspiration precautions at all times CARDIOVASCULAR: Follow hemodynamics. Vital signs per facility protocol GI & NUTRITION: Continue with nutritional support. Continue stool softeners and laxatives as needed. KIDNEYS & ELECTROLYTES: Strict monitoring of intake, output and overall fluid balance. Avoid nephrotoxic medications to the extent possible. Medications to be dosed according to renal function. Monitor electrolytes and replace as needed ENDOCRINE: Maintain blood glucose between 100-180 at all times. Hypoglycemia protocol in place INFECTIOUS DISEASE: Trend temperature, WBC and procalcitonin level Follow cultures, deescalate antibiotics as soon as possible. Panculture if new onset fever ONCOLOGY/HEMATOLOGY/COAGULATION: Monitor for s/s of bleeding Monitor hemoglobin, coagulation studies as needed SKIN: Pressure ulcer prevention per facility protocol Specialty mattress ORTHO/REHAB: Continue PT/OT Prophylaxis: Continue GI and DVT prophylaxis Code Status: Full Resuscitation Disposition: TBD ATTESTATION BY PHYSICIAN I reviewed the documentation, medical decision making, and treatment plan as noted by the mid-level provider above. I agree with the findings and plan of care. Brian Acharya MD, ECTOR N YIN Oct 13, 2024 12:18
--- NOTE | 2024-10-13 14:54 | NUR ---
DCP: HOME with family Sw met with pt who lives with her son Kiko Wren [phone] and his in their apt. DIL assists pt with her ADLS and home management. Pt attends [facility] and they transport as needed to MD appt. Pt has a walker with seat and no HH. PCP is Wes Mathis. Pt denies need for SNF, states she will return home at tn. Addendum: 10/13/24 at 1457 by LYRIC WILSON SS Amended: Links added.
--- NOTE | 2024-10-13 16:15 | NUR ---
EVARISTO WEN ARRIVED AND SIGNED FOR CT NEEDED PHONE NUMBER FOR MR WEN [phone]
--- NOTE | 2024-10-13 19:00 | NUR ---
TRANSFERED CARE TO [facility] AT THIS TIME
[2024-10-13] MEDS ORDERED: IOHEXOL-350 75 ML VIAL IV ONE (19:18)
[2024-10-13 20:00] VITALS: BP 136/88; PULSE 81; RESP 18; TEMP 98.6; O2SAT 96
--- NOTE | 2024-10-13 20:25 | HMCIMG ---
CT CHEST PE PROTOCOL O CONT HISTORY: chest pain, elevated trop TECHNIQUE: CT CHEST PE PROTOCOL O CONT. Omnipaque contrast was given.. Coronal, sagittal and MIP reformats were obtained. CT was performed with one or more of the following dose reduction techniques: Automated exposure control, adjustment of the mA and/or kV according to the patient's size, or use of the iterative reconstruction technique. FINDINGS: Multifocal patchy bilateral airspace consolidation suggesting multifocal pneumonia, more pronounced in the posterior right upper lobe. Short-term follow-up CT chest when acute symptoms resolve is recommended to assess resolution. There is no pleural effusion or pneumothorax. No pulmonary embolus is identified. There is mild cardiomegaly. There is atherosclerotic changes of the aorta and coronary arteries. There is no acute findings in the visualized upper abdomen. Degenerative changes of the spine are noted. IMPRESSION: 1. Multifocal patchy bilateral airspace consolidation suggesting multifocal pneumonia, more pronounced in the posterior right upper lobe. Short-term follow-up CT chest when acute symptoms resolve is recommended to assess resolution. There is no pleural effusion or pneumothorax. 2. No pulmonary embolus is identified.
[2024-10-13 21:50] VITALS: BP 168/89; PULSE 73; RESP 20; TEMP 98.6
[2024-10-14] VITALS (7 sets, daily range): BP systolic 156–186; BP diastolic 73–97; PULSE 72–94; RESP 18–20; TEMP 98–99.5
--- NOTE | 2024-10-14 00:11 | NUR ---
Patient removed IV IV catheter noted at bedside during nurse rounds. Patient stated the IV was "bothering her" so she removed it. Patient was advised of importance of IV access during admission to hospital. At this time Lynn CASTRO successfully inserted 20 gauge IV catheter to patient's left antecubital vein. Patient tolerated venipuncture.
--- NOTE | 2024-10-14 02:55 | NUR ---
Patient's second removal of IV catheter Nursing staff alerted by bed alarm to patient's room. Patient verbalized she needed to use the bathroom so she was attempting to get out of bed. Patient was advised that she had a brief on and it could be changed once she was soiled or wet. Patient assisted back into bed by nursing staff and IV to left antecubital vein was noted removed. Patient voiced she did not have an IV. Nurse advised patient of the importance of needing an IV catheter during admission in hospital should the need arise to use it for emergency purposes. Nurse successfully inserted 20 gauge IV catheter in patient's right forearm x1 attempt with the help of Paige CASTRO due to patient becoming aggressive towards staff. Nurse advised patient that nursing staff was here to help her transition back home not to hurt her in any way. Patient verbalized understanding and voiced she would not remove IV catheter again.
[2024-10-14 04:59] LABS: HEMATOCRIT 34.6 % (36-48); MEAN CORPUSCULAR HEMOGLOBIN 31.1 pg (27.0-33.0); MEAN CORPUSCULAR HGB CONC 33.2 g/dL (32.0-36.0); MEAN CORPUSCULAR VOLUME 93.5 fL (79-99); RED BLOOD CELL COUNT(AUTO) 3.7 MIL/uL (4.00-5.50); RED CELL DISTRIBUTION WIDTH 12.6 % (11.0-15.5); WHITE BLOOD COUNT (AUTO) 9.9 K/uL (4.8-10.8)
[2024-10-14 05:06] LABS: CREATININE 0.7 mg/dL (0.5-1.0); POTASSIUM 3.6 mmol/L (3.5-5.1)
[2024-10-14] MEDS ORDERED: ATOR40TA71 PO ×2 (08:10)
[2024-10-14] MEDS ORDERED: METF-446 PO ×2 (08:10)
[2024-10-14] MEDS ORDERED: ERGO500093 PO ×2 (08:10)
[2024-10-14] MEDS ORDERED: LOSA50TA64 PO ×2 (08:10)
[2024-10-14] MEDS: LoSARTan 50 MG TABLET PO SCH (09:06)
--- NOTE | 2024-10-14 09:23 | HMCIMG ---
Exam Type: ABD 1VW Clinical Information: constipation Comparison: None Findings: Abdomen demonstrates no evidence of pathologic calcification or soft tissue mass. There are no radiopacities to suggest calculous disease. The intestinal gas pattern is within normal limits without evidence of dilatation to suggest obstruction or adynamic ileus. Urinary bladder is filled with contrast. There are postsurgical changes of the left hip. The bony structures are unremarkable. IMPRESSION: Normal abdomen.
[2024-10-14] MEDS: acetaMINOPHEN 325 MG TAB PO PRN (13:10)
--- NOTE | 2024-10-14 17:55 | PN ---
[facility] PROGRESS NOTE Date Patient Seen: Oct 14, 2024 Time of Visit: 17:55 Supervising Physician: [Dr. Harvey] Primary Care Physician: Dr. Zachery Mathis Outpatient Specialists: Inpatient Consults: PROBLEM LIST: Choledocholithiasis ruled out by US Leukocytosis Hypokalemia Possible acute chest pain (per family member), x2 negative troponin (Patient denied having chest pain.) Acute constipation Uncontrolled hypertension Chronic problem list: arthritis, dementia, DM type 2, hypercholesteremia, hypertension Plan Summary: Order CMP to evaluated LFT's Start rocephin empirically Supplemental oxygen as needed [id number] g daily Bisacodyl 10 mg daily KUB in a.m. Start on clear liquid diet and advance as tolerated PT to evaluate and treat Out of bed to chair and ambulate Dispo: Home INTERVAL HISTORY: Ms. Worrell is a 84-year-old female with a history of arthritis, dementia, DM type 2, hypercholesteremia, hypertension who presented to [facility] ED for evaluation of a chest pain, constipation, and back pain. RN reports that son brought patient for chest pain. Son left shortly after he brought the patient. The patient is a poor historian due to dementia. The patient states that she did not have chest pain. She states that she told her son and nephew who she lives with that she had severe mid back pain which prompted the ED visit. The patient reports the back pain is exacerbated by movement and reports that she believes it is due to her constipation. Patient denied having chest pain. Troponin x2 WNL. UA negative for leuk EST. CT abdomen and pelvis without contrast: Large amount of fecal material is seen in the colon suggestive of constipation. Gallstones are seen in the distended gallbladder. There appears to be common duct stone. Common duct measures 8 mm. Remarkable lab results: WBCs 13.1, K 3.3, chloride 100, BUN 24, creatinine 0.9, glucose 118, D-dimer 3005. I went to assess the patient at bedside. Patient reports back pain is improved with lidocaine patch. Patient continues to deny any chest pain. No family at bedside to sign consent for CTA chest PE protocol. I informed patient of remarkable labs, diagnostics, and plan of care. Patient verbalized understanding and is in agreement with the plan. Plan and assessment as listed below. 10/13 - patient is seen and evaluated at the ED. Patient is seen sitting up in stretcher does not appear to be in any acute distress at this time. Patient is awake alert and oriented x2. Patient does periods of confusion secondary to her dementia. The patient denies any chest discomfort, chest pain or dyspnea at this time. Troponins have been negative. Patient had a CT of the abdomen which showed constipation as well as gallstones and seen a distended gallbladder. Patient had abdominal ultrasound which showed cholelithiasis and gallbladder sludge without bile duct dilatation. On exam patient has negative Patel's sign. Patient to be administered stool softeners. Patient is adamant she wants to go home. We will obtain a KUB after she has bowel movement and possibly sent home. Vital signs are stable. Labs show white count has trended down within normal limits. Labs did show some electrolyte derangements which have been replaced via protocol. We will repeat labs. We will plan to DC home in a.m. 10/14 patient is evaluated at bedside. Her CT of the abdomen pelvis shows a large amount of fecal matter in the colon suggestive constipation as well as gallstones and a distended gallbladder with possible common bile duct stone. A subsequent abdominal ultrasound revealed cholelithiasis gallbladder sludge and no evidence of acute or chronic inflammation. Patient denies any. Abdominal pain. She did have a bowel movement. Her CT also reveals a moderately sized consolidation to right lower lobe, we will recommend repeating CT in 4-6 months to ensure resolution. No LFTs on file for correlation with imaging studies. Physical exam was unremarkable with negative Patel's sign. REVIEW OF SYSTEMS: Unable to obtain ROS from patient due to medical history, dementia. PHYSICAL EXAM: GENERAL: Alert, awake oriented x 3 (person, place, situation. Not oriented to time/month) HEENT: EOMI, Sclera non icteric, moist mucosa NECK: Supple, no JVD, trachea midline LUNGS: Clear breath sounds bilaterally. No wheezes HEART: Regular rate and rhythm. Normal S1 and S2, without murmurs ABD: Abdomen soft, nontender. Bowel sounds present EXT: No clubbing cyanosis or edema NEURO: Alert and oriented x3, follows commands. No neuro deficits noted. Vital Signs (last 8hr) Date Time Temp Pulse Resp B/P (MAP) Pulse Ox O2 Delivery O2 Flow Rate FiO2 10/14/24 16:00 99.0 82 18 162/97 96 Room Air 21 10/14/24 14:17 Room Air* 0 21 10/14/24 11:56 99.5 86 18 162/89 98 Room Air 21 LABS: Hematology Labs: Test 10/14/24 04:30 10/13/24 03:39 10/12/24 20:11 Range/Units White Blood Count 9.9 4.8-10.8 K/uL Red Blood Count 3.70 L 4.00-5.50 MIL/uL Hemoglobin 11.5 L 12.0-16.0 g/dL Hematocrit 34.6 L 36-48 % Mean Corpuscular Volume 93.5 79-99 fL Mean Corpuscular Hemoglobin 31.1 27.0-33.0 pg Mean Corpuscular Hemoglobin Concent 33.2 32.0-36.0 g/dL Red Cell Distribution Width 12.6 11.0-15.5 % Platelet Count 236 130-400 K/uL Mean Platelet Volume 10.2 7.5-10.5 fL Nucleated Red Blood Cells 0.0 0.0-0.19 % Immature Granulocyte % (Auto) 0.4 0-1 % Neutrophils (%) (Auto) 85.6 H 40.0-77.0 % Lymphocytes (%) (Auto) 4.5 L 21.0-51.0 % Monocytes (%) (Auto) 8.0 3.0-13.0 % Eosinophils (%) (Auto) 1.3 0.0-8.0 % Basophils (%) (Auto) 0.2 0.0-5.0 % Neutrophils # (Auto) 7.9 H 1.8-7.7 K/uL Lymphocytes # (Auto) 0.4 L 1.0-4.8 K/uL Monocytes # (Auto) 0.7 0.1-1.0 K/uL Eosinophils # (Auto) 0.12 0.00-0.70 K/uL Basophils # (Auto) 0.02 0.00-0.20 K/uL Absolute Immature Granulocyte (auto 0.04 0-1 K/uL White Cell Morphology Comment See comments Chemistry Labs: Test 10/14/24 13:58 10/14/24 04:30 10/13/24 20:29 10/13/24 03:39 Range/Units Whole Blood Glucose 151 H 70-110 MG/DL Sodium Level 141 136-145 mmol/L Potassium Level 3.6 3.5-5.1 mmol/L Chloride Level 103 101-111 mmol/L Carbon Dioxide Level 30 21-32 mmol/L Blood Urea Nitrogen 18 7-18 mg/dL Creatinine 0.7 0.5-1.0 mg/dL Glomerular Filtration Rate Calc 85 >90 mL/min Random Glucose 134 H 70-105 mg/dL Total Calcium 8.6 8.5-10.1 mg/dL Procalcitonin < 0.05 L 0.05-0.5 ng/mL Troponin I High Sensitivity 26 4-50 ng/L Hemoglobin A1c 6.3 H 4.0-6.0 % Estimated Average Glucose (eAG) 134 H 70-126 mg/dL Phosphorus Level 4.0 2.5-4.9 mg/dL Magnesium Level 2.10 1.80-2.40 mg/dL Thyroid Stimulating Hormone (TSH) 2.55 0.36-3.74 uIU/mL Coagulation Labs: Test 10/12/24 20:11 Range/Units D-Dimer Quantitative (PE/DVT) 3005 *H 0-500 ng/mL DIAGNOSTICS / RADIOLOGY RESULTS: [Exam Type: US ABDOMINAL RUQ\E\LTD Clinical Information: cholelithiasis. r/o common duct stone Comparison: None Findings: The liver shows normal echogenicity and size. No hepatic lesions are seen. Doppler evaluation shows patent portal and hepatic veins. The gallbladder shows cholelithiasis and sludge. No acute or chronic inflammation is noted. The gallbladder is hydropic. The gallbladder wall measures 2 mm No bile duct dilatation is noted. The common bile duct measures 4 mm. The right kidney measures 9.7 x 4.2 cm, and shows no hydronephrosis or calculi, masses or other abnormalities. The pancreas is obscured. The aorta and inferior vena cava show no significant abnormalities. IMPRESSION: Cholelithiasis and gallbladder sludge ] PLAN NEURO: Minimize central acting medications as possible. Maintain fall precautions, adequate lighting during the day PULMONARY: Supplemental 02 as needed. Maintain aspiration precautions at all times CARDIOVASCULAR: Follow hemodynamics. Vital signs per facility protocol GI & NUTRITION: Continue with nutritional support. Continue stool softeners and laxatives as needed. KIDNEYS & ELECTROLYTES: Strict monitoring of intake, output and overall fluid balance. Avoid nephrotoxic medications to the extent possible. Medications to be dosed according to renal function. Monitor electrolytes and replace as needed ENDOCRINE: Maintain blood glucose between 100-180 at all times. Hypoglycemia protocol in place INFECTIOUS DISEASE: Trend temperature, WBC and procalcitonin level Follow cultures, deescalate antibiotics as soon as possible. Panculture if new onset fever ONCOLOGY/HEMATOLOGY/COAGULATION: Monitor for s/s of bleeding Monitor hemoglobin, coagulation studies as needed SKIN: Pressure ulcer prevention per facility protocol Specialty mattress ORTHO/REHAB: Continue PT/OT Prophylaxis: Continue GI and DVT prophylaxis Code Status: Full Resuscitation Disposition: DAJUAN GLEZ Oct 14, 2024 17:55
[2024-10-14 18:59] LABS: BILIRUBIN,TOTAL 1.2 mg/dL (0.2-1.0); CREATININE 0.9 mg/dL (0.5-1.0); POTASSIUM 3.4 mmol/L (3.5-5.1); TOTAL PROTEIN, SERUM 6.6 g/dL (6.0-8.3)
[2024-10-14] MEDS: cefTRIAXone 1G VIAL IVPB SCH (19:46)
[2024-10-15] VITALS: BP 145/87; PULSE 82; RESP 18; TEMP 98.1
[2024-10-15 04:00] VITALS: BP 154/84; PULSE 76; RESP 18; TEMP 99.3
[2024-10-15 05:15] LABS: ALBUMIN 2.6 g/dL (3.5-5.0); BILIRUBIN,TOTAL 0.7 mg/dL (0.2-1.0); CREATININE 0.7 mg/dL (0.5-1.0); POTASSIUM 3.6 mmol/L (3.5-5.1); TOTAL PROTEIN, SERUM 6.1 g/dL (6.0-8.3)
[2024-10-15 08:00] VITALS: O2SAT 95
[2024-10-15 08:29] VITALS: BP 155/88; PULSE 80; RESP 21; TEMP 98.2
--- NOTE | 2024-10-15 10:30 | PN ---
[facility] PROGRESS NOTE Date Patient Seen: Oct 15, 2024 Time of Visit: 10:28 Supervising Physician: [Dr. Harvey] Primary Care Physician: Dr. Zachery Mathis Outpatient Specialists: Inpatient Consults: PROBLEM LIST: Choledocholithiasis ruled out by US Leukocytosis Hypokalemia Possible acute chest pain (per family member), x2 negative troponin (Patient denied having chest pain.) Acute constipation Uncontrolled hypertension Chronic problem list: arthritis, dementia, DM type 2, hypercholesteremia, hypertension Plan Summary: Continue rocephin for now Supplemental oxygen as needed [id number] g daily Bisacodyl 10 mg daily KUB in a.m. Start on clear liquid diet and advance as tolerated PT to evaluate and treat Out of bed to chair and ambulate Dispo: Home INTERVAL HISTORY: Ms. Worrell is a 84-year-old female with a history of arthritis, dementia, DM type 2, hypercholesteremia, hypertension who presented to [facility] ED for evaluation of a chest pain, constipation, and back pain. RN reports that son brought patient for chest pain. Son left shortly after he brought the patient. The patient is a poor historian due to dementia. The patient states that she did not have chest pain. She states that she told her son and nephew who she lives with that she had severe mid back pain which prompted the ED visit. The patient reports the back pain is exacerbated by movement and reports that she believes it is due to her constipation. Patient denied having chest pain. Troponin x2 WNL. UA negative for leuk EST. CT abdomen and pelvis without contrast: Large amount of fecal material is seen in the colon suggestive of constipation. Gallstones are seen in the distended gallbladder. There appears to be common duct stone. Common duct measures 8 mm. Remarkable lab results: WBCs 13.1, K 3.3, chloride 100, BUN 24, creatinine 0.9, glucose 118, D-dimer 3005. I went to assess the patient at bedside. Patient reports back pain is improved with lidocaine patch. Patient continues to deny any chest pain. No family at bedside to sign consent for CTA chest PE protocol. I informed patient of remarkable labs, diagnostics, and plan of care. Patient verbalized unders tanding and is in agreement with the plan. Plan and assessment as listed below. 10/13 - patient is seen and evaluated at the ED. Patient is seen sitting up in stretcher does not appear to be in any acute distress at this time. Patient is awake alert and oriented x2. Patient does periods of confusion secondary to her dementia. The patient denies any chest discomfort, chest pain or dyspnea at this time. Troponins have been negative. Patient had a CT of the abdomen which showed constipation as well as gallstones and seen a distended gallbladder. Patient had abdominal ultrasound which showed cholelithiasis and gallbladder sludge without bile duct dilatation. On exam patient has negative Patel's sign. Patient to be administered stool softeners. Patient is adamant she wants to go home. We will obtain a KUB after she has bowel movement and possibly sent home. Vital signs are stable. Labs show white count has trended down within normal limits. Labs did show some electrolyte derangements which have been replaced via protocol. We will repeat labs. We will plan to DC home in a.m. 10/14 patient is evaluated at bedside. Her CT of the abdomen pelvis shows a large amount of fecal matter in the colon suggestive constipation as well as gallstones and a distended gallbladder with possible common bile duct stone. A subsequent abdominal ultrasound revealed cholelithiasis gallbladder sludge and no evidence of acute or chronic inflammation. Patient denies any. Abdominal pain. She did have a bowel movement. Her CT also reveals a moderately sized consolidation to right lower lobe, we will recommend repeating CT in 4-6 months to ensure resolution. No LFTs on file for correlation with imaging studies. Physical exam was unremarkable with negative Patel's sign. 10/15 blood pressure is 155/80 with a heart rate of 80, afebrile on room air. No documented fever overnight. WBC today improved to nine from 13 on admission, hemoglobin 11, platelets 236. CMP is within normal limits with no electrolyte derangement, creatinine of 0.7, total bilirubin is 0.7, improved from 1.2 yesterday and LFTs within normal limits. UA is negative for acute infection. REVIEW OF SYSTEMS: Unable to obtain ROS from patient due to medical history, dementia. PHYSICAL EXAM: GENERAL: Alert, awake oriented x 3 (person, place, situation. Not oriented to time/month) HEENT: EOMI, Sclera non icteric, moist mucosa NECK: Supple, no JVD, trachea midline LUNGS: Clear breath sounds bilaterally. No wheezes HEART: Regular rate and rhythm. Normal S1 and S2, without murmurs ABD: Abdomen soft, nontender. Bowel sounds present EXT: No clubbing cyanosis or edema NEURO: Alert and oriented x3, follows commands. No neuro deficits noted. Vital Signs (last 8hr) Date Time Temp Pulse Resp B/P (MAP) Pulse Ox O2 Delivery O2 Flow Rate FiO2 10/15/24 08:29 98.2 80 21 155/88 95 10/15/24 04:00 99.3 76 18 154/84 97 Room Air LABS: Hematology Labs: Test 10/14/24 04:30 Range/Units White Blood Count 9.9 4.8-10.8 K/uL Red Blood Count 3.70 L 4.00-5.50 MIL/uL Hemoglobin 11.5 L 12.0-16.0 g/dL Hematocrit 34.6 L 36-48 % Mean Corpuscular Volume 93.5 79-99 fL Mean Corpuscular Hemoglobin 31.1 27.0-33.0 pg Mean Corpuscular Hemoglobin Concent 33.2 32.0-36.0 g/dL Red Cell Distribution Width 12.6 11.0-15.5 % Platelet Count 236 130-400 K/uL Mean Platelet Volume 10.2 7.5-10.5 fL Nucleated Red Blood Cells 0.0 0.0-0.19 % Chemistry Labs: Test 10/15/24 05:38 10/15/24 04:36 10/14/24 04:30 10/13/24 20:29 Range/Units Whole Blood Glucose 121 H 70-110 MG/DL Sodium Level 137 136-145 mmol/L Potassium Level 3.6 3.5-5.1 mmol/L Chloride Level 104 101-111 mmol/L Carbon Dioxide Level 29 21-32 mmol/L Blood Urea Nitrogen 25 H 7-18 mg/dL Creatinine 0.7 0.5-1.0 mg/dL Glomerular Filtration Rate Calc 85 >90 mL/min Random Glucose 116 H 70-105 mg/dL Total Calcium 8.4 L 8.5-10.1 mg/dL Total Bilirubin 0.7 # 0.2-1.0 mg/dL Aspartate Amino Transf (AST/SGOT) 16 10-37 U/L Alanine Aminotransferase (ALT/SGPT) 20 12-78 U/L Alkaline Phosphatase 95 50-136 U/L Total Protein 6.1 6.0-8.3 g/dL Albumin 2.6 L 3.5-5.0 g/dL Procalcitonin < 0.05 L 0.05-0.5 ng/mL Troponin I High Sensitivity 26 4-50 ng/L DIAGNOSTICS / RADIOLOGY RESULTS: [Reviewed] PLAN NEURO: Minimize central acting medications as possible. Maintain fall precautions, adequate lighting during the day PULMONARY: Supplemental 02 as needed. Maintain aspiration precautions at all times CARDIOVASCULAR: Follow hemodynamics. Vital signs per facility protocol GI & NUTRITION: Continue with nutritional support. Continue stool softeners and laxatives as needed. KIDNEYS & ELECTROLYTES: Strict monitoring of intake, output and overall fluid balance. Avoid nephrotoxic medications to the extent possible. Medications to be dosed according to renal function. Monitor electrolytes and replace as needed ENDOCRINE: Maintain blood glucose between 100-180 at all times. Hypoglycemia protocol in place INFECTIOUS DISEASE: Trend temperature, WBC and procalcitonin level Follow cultures, deescalate antibiotics as soon as possible. Panculture if new onset fever ONCOLOGY/HEMATOLOGY/COAGULATION: Monitor for s/s of bleeding Monitor hemoglobin, coagulation studies as needed SKIN: Pressure ulcer prevention per facility protocol Specialty mattress ORTHO/REHAB: Continue PT/OT Prophylaxis: Continue GI and DVT prophylaxis Code Status: Full Resuscitation Disposition: TBD DAJUAN DONOVAN Oct 15, 2024 10:30
[2024-10-15 12:00] VITALS: BP_SYST 155; BP_SYST 163; BP_DIAS 64; BP_DIAS 99; PULSE 80; RESP 18; TEMP 98.7
--- NOTE | 2024-10-15 12:33 | DS ---
[facility] DISCHARGE SUMMARY Date Patient Seen: Oct 15, 2024 Time of Visit: 12:32 Supervising Physician: [Dr. Harvey] Primary Care Physician: Dr. Zachery Mathis Outpatient Specialists: Inpatient Consults: PROBLEM LIST: Choledocholithiasis ruled out by US Leukocytosis Hypokalemia Possible acute chest pain (per family member), x2 negative troponin (Patient denied having chest pain.) Acute constipation Uncontrolled hypertension Chronic problem list: arthritis, dementia, DM type 2, hypercholesteremia, hypertension HOSPITAL COURSE: HPI (per admitting provider) Ms. Worrell is a 84-year-old female with a history of arthritis, dementia, DM type 2, hypercholesteremia, hypertension who presented to [facility] ED for evaluation of a chest pain, constipation, and back pain. RN reports that son brought patient for chest pain. Son left shortly after he brought the patient. The patient is a poor historian due to dementia. The patient states that she did not have chest pain. She states that she told her son and nephew who she lives with that she had severe mid back pain which prompted the ED visit. The patient reports the back pain is exacerbated by movement and reports that she believes it is due to her constipation. Patient denied having chest pain. Troponin x2 WNL. UA negative for leuk EST. CT abdomen and pelvis without contrast: Large amount of fecal material is seen in the colon suggestive of constipation. Gallstones are seen in the distended gallbladder. There appears to be common duct stone. Common duct measures 8 mm. Remarkable lab results: WBCs 13.1, K 3.3, chloride 100, BUN 24, creatinine 0.9, glucose 118, D-dimer 3005. A CT of the abdomen which showed constipation as well as gallstones and seen a distended gallbladder. An abdominal ultrasound was ordered which showed cholelithiasis and gallbladder sludge without bile duct dilatation. On exam patient has negative Patel's sign. Her CT also reveals a moderately sized consolidation to right lower lobe, we will recommend repeating CT in 4-6 months to ensure resolution. Patient remained afebrile and without abdominal pain. Her WBC improved to 9 from 13 on admission, hemoglobin 11, platelets 236. CMP is within normal limits with no electrolyte derangement, creatinine of 0.7, total bilirubin is 0.7, improved from 1.2 and LFTs within normal limits. UA is neg ative for acute infection. She was able to tolerate diet without N/V or abdominal pain. She was discharged in stable condition given no acute pathology. CHRONIC PROBLEMS: continue previous management per PCP unless otherwise indicated DISCHARGE MEDICATIONS: Continue medication as listed below Pt hemodynamically stable and afebrile at time of discharge. PCP notified of patients admission, hospital course and discharge. Continued Medications: Atorvastatin Calcium (Atorvastatin Calcium) 40 Mg Tablet 1 TAB PO DAILY Ergocalciferol (Vitamin D2) (Vitamin D2) 1,250 Mcg (38510 Unit) Capsule 1 CAP PO QWEEK Losartan Potassium (Losartan Potassium) 50 Mg Tablet 1 TAB PO DAILY Metformin HCl (Metformin HCl) 1,000 Mg Tablet 1 TAB PO BID PHYSICAL EXAM: GENERAL: Alert, awake oriented x 3 (person, place, situation. Not oriented to time/month) HEENT: EOMI, Sclera non icteric, moist mucosa NECK: Supple, no JVD, trachea midline LUNGS: Clear breath sounds bilaterally. No wheezes HEART: Regular rate and rhythm. Normal S1 and S2, without murmurs ABD: Abdomen soft, nontender. Bowel sounds present EXT: No clubbing cyanosis or edema NEURO: Alert and oriented x3, follows commands. No neuro deficits noted. FOLLOW-UP: F/U with PCP in 2-3 days for reevaluation. Repeat CT chest outpatient in 4-6 weeks for reevaluation of pulmonary nodule. RECOMMENDATIONS: See Discharge Instructions This case was seen and discussed with my supervising physician. More than 30 minutes spent on discharge process, including evaluation of the patient, discussion with nursing staff, medication reconciliation and follow-up appointments DAJUAN DONOVAN Oct 15, 2024 12:33
--- NOTE | 2024-10-15 14:54 | NUR ---
DISCHARGE IV AND TELEPAK REMOVED. DISCHARGE INSTRUCTIONS GIVEN AND EXPLAINED TO PATIENT. PATIENT WHEELED DOWN TO PRIVATE CAR. PICKED UP BY PATIENTS SON.
[2024-10-16] MEDS ORDERED: LACT10SO85 PO (13:54)
== END 2024-10-15 14:55 | disposition home or self-care (01) ==
LOC: EDH 18:59 → EDHIP 22:53 → 3DH 10-13 20:59
PROVIDERS: ADMIT Internal Medicine Critical Care Medicine; ATTEND Internal Medicine Critical Care Medicine
DX: R07.89 Other chest pain (principal); I10 Essential (primary) hypertension; K59.00 Constipation, unspecified; E78.00 Pure hypercholesterolemia, unspecified; E11.9 Type 2 diabetes mellitus without complications; M19.90 Unspecified osteoarthritis, unspecified site; K80.20 Calculus of gallbladder without cholecystitis without obstruction; K80.70 Calculus of gallbladder and bile duct without cholecystitis without obstruction; D72.829 Elevated white blood cell count, unspecified; R60.0 Localized edema; E87.6 Hypokalemia; Z79.899 Other long term (current) drug therapy; Z98.890 Other specified postprocedural states
CPT/HCPCS: 99285; 84484 ×5; 80048 ×2; 85025 ×2; 85378; 81001; 36415 ×4; 71045; 74176; 93005 ×2; 96374; 96376; 96372 ×3; 83036; 84443; 83735; 84100; 82948 ×10; 71270; 76705; 93970; 96375; 80053 ×2; 85027; 74018; 84145; G0378 ×64; J1650 ×3; Q9967 ×2; J0696

== ENCOUNTER 2024-10-16 11:09 | Emergency (ER) | payer MEDICARE ==
[~2024-10-16] VITALS: Ht 157.5 cm; Wt 65.8 kg
[~2024-10-16 11:09] MED LIST: ATOR40TA71 PO; ERGO500093 PO; LOSA50TA64 PO; METF-446 PO
--- NOTE | 2024-10-16 11:20 | NUR ---
PT TO MY ED BED 11
--- NOTE | 2024-10-16 11:43 | ERN ---
General Chief Complaint: Back Pain or Injury Stated Complaint: back pain Time Seen by MD: 11:16 Source: patient History of Present Illness Initial Comments PATIENT IS A 84-YEAR-OLD FEMALE COMING IN TO BE EVALUATED FOR RIGHT LOWER BACK RIGHT LOWER ABDOMINAL PAIN. PER PATIENT HE HAS BEEN HAVING THIS PAIN FOR A COUPLE OF DAYS AND STATES THAT A COUPLE OF DAYS AGO IT WAS WORSE TODAY IT IS A LITTLE BIT BETTER BUT SHE STILL HAS THE PAIN. Allergies: Coded Allergies: No Allergy Information Available (Verified Allergy, Unknown, 08/22/21) Home Meds Reported Medications Ergocalciferol (Vitamin D2) (Vitamin D2) 1,250 Mcg (76014 Unit) Capsule, 1 CAP PO QWEEK 10/14/24 Metformin HCl (Metformin HCl) 1,000 Mg Tablet, 1 TAB PO BID 10/14/24 Atorvastatin Calcium (Atorvastatin Calcium) 40 Mg Tablet, 1 TAB PO DAILY 10/14/24 Losartan Potassium (Losartan Potassium) 50 Mg Tablet, 1 TAB PO DAILY 10/14/24 Past Medical History Past Medical History: Anxiety, Dementia, Diabetes-Type II, Unable to Obtain Past Surgical History: Unknown ROS Dictation CONSTITUTIONAL: NO CHILLS, NO FEVER, NO WEAKNESS, NO DIAPHORESIS, NO MALAISE. HEAD/FACE: NO SIGNS OF TRAUMA. EENT: NO EYE PAIN, NO BLURRED VISION, NO TEARING, NO DOUBLE VISION, NO EAR PAIN, NO EAR DISCHARGE, NO NOSE PAIN, NO NASAL CONGESTION, NO THROAT PAIN, NO THROAT SWELLING, NO MOUTH PAIN. RESPIRATORY: NO COUGH, NO ORTHOPNEA, NO SOB, NO STRIDOR, NO WHEEZING. CARDIOVASCULAR: NO CHEST PAIN, NO EDEMA, NO PALPITATIONS, NO SYNCOPE. GASTROINTESTINAL/ABDOMINAL: NO ABDOMINAL PAIN, NO CONSTIPATION, NO DIARRHEA, NO NAUSEA, NO VOMITING. GENITOURINARY: NO ABNORMAL DISCHARGE, NO DYSURIA, NO FREQUENT URINATION, NO HEMATURIA. NO COMPLAINTS OF PAIN IN THE GENITALS. MUSCULOSKELETAL: NO BACK PAIN, NO GOUT, NO JOINT PAIN, NO JOINT SWELLING, NO MUSCLE PAIN, NO MUSCLE STIFFNESS, NO NECK PAIN. INTEGUMENTARY: NO CHANGE IN COLOR, NO CHANGE IN HAIR/NAILS, NO DRYNESS, NO LESION, NO LUMPS, NO RASH. NEUROLOGICAL/PSYCH: NO ANXIETY, NOT DEPRESSED, NO EMOTIONAL PROBLEM, NO HEADACHE, NO NUMBNESS, NO PRE-EXISTING DEFICIT, NO HISTORY OF SEIZURES, NO TREMORS, NO WEAKNESS. HEMATOLOGIC/LYMPHATIC: NOT ANEMIC, NO HISTORY OF BLOOD CLOTS, NO APPARENT BLEEDING, NO BRUISING, GLANDS NOT SWOLLEN. ALL SYSTEMS NEGATIVE, EXCEPT NOTED. Physical Exam Physical Exam Dictation VITAL SIGNS: REVIEWED. GENERAL APPEARANCE: ALERT, ORIENTED X3, NO ACUTE DISTRESS, OBESE. HEAD AND FACE: NON-TRAUMATIC. EYES: PERRL, PINK CONJUNCTIVAS, EYELID NO TRAUMA, ANTERIOR CHAMBER CLEAR. EARS: PINNAS INTACT AND NO SIGNS OF TRAUMA OR ERYTHEMA. EAR CANALS CLEAR AND NO DISCHARGE. TMS NO ERYTHEMA. NOSE: NO DISCHARGE, NO BLEEDING. OROPHARYNX: MOUTH NORMAL, TEETH NO CARIES, TONGUE PINK. PHARYNX CLEAR, NO ERYTHEMA. TONSILS NO EXUDATES, NO ABSCESSES NOTED. MUCOUS MEMBRANE MOIST. NECK: SUPPLE, NON-TENDER, NO THYROMEGALY, NO MASSES, NO JVD, NO BRUITS. BREAST: DEFERRED. CHEST: NO TENDERNESS, NO CREPITUS, NO PARADOXICAL MOVEMENT, NO RETRACTIONS. LUNGS: CLEAR, WELL-VENTILATED, SYMMETRIC, NO RALES, NO WHEEZING, NO RHONCHI, NO STRIDOR, GOOD BREATH SOUNDS BILATERALLY. HEART: REGULAR RATE, REGULAR RHYTHM, NO MURMUR, NO GALLOPS. VASCULAR: NO PERIPHERAL EDEMA. ABDOMEN: SOFT, POSITIVE BOWEL SOUNDS, NONDISTENDED, NO GUARDING, RIGHT CVA ANGLE TENDERNESS, NO REBOUND, NO MASSES NO HEPATOMEGALY, NO SPLENOMEGALY, NO NEGRETE'S SIGN, NO HERNIAS. RECTAL: DEFERRED. GENITAL: DEFERRED. NEUROLOGICAL: NORMAL SPEECH, GROSS MOTOR FUNCTION INTACT, GROSS SENSORY FUNCTION INTACT. MUSCULOSKELETAL: NECK NONTENDER, FULL RANGE OF MOTION, BACK NONTENDER, FULL RANGE OF MOTION. EXTREMITIES: NONTENDER, FULL RANGE OF MOTION. SKIN: COLOR PINK, DRY, NO TURGOR, NO RASH, NO LACERATIONS, NO ABRASIONS, NO CONTUSIONS. LYMPHATICS: DEFERRED. Results Laboratory and Microbiology Lab and Micro Result Laboratory Tests Test 10/16/24 11:55 White Blood Count 7.6 K/uL (4.8-10.8) Red Blood Count 3.68 MIL/uL (4.00-5.50) L Hemoglobin 11.3 g/dL (12.0-16.0) L Hematocrit 33.7 % (36-48) L Mean Corpuscular Volume 91.6 fL (79-99) Mean Corpuscular Hemoglobin 30.7 pg (27.0-33.0) Mean Corpuscular Hemoglobin Concent 33.5 g/dL (32.0-36.0) Red Cell Distribution Width 12.5 % (11.0-15.5) Platelet Count 281 K/uL (130-400) Mean Platelet Volume 9.7 fL (7.5-10.5) Immature Granulocyte % (Auto) 0.4 % (0-1) Neutrophils (%) (Auto) 81.6 % (40.0-77.0) H Lymphocytes (%) (Auto) 7.8 % (21.0-51.0) L Monocytes (%) (Auto) 8.4 % (3.0-13.0) Eosinophils (%) (Auto) 1.3 % (0.0-8.0) Basophils (%) (Auto) 0.5 % (0.0-5.0) Neutrophils # (Auto) 6.2 K/uL (1.8-7.7) Lymphocytes # (Auto) 0.6 K/uL (1.0-4.8) L Monocytes # (Auto) 0.6 K/uL (0.1-1.0) Eosinophils # (Auto) 0.10 K/uL (0.00-0.70) Basophils # (Auto) 0.04 K/uL (0.00-0.20) Absolute Immature Granulocyte (auto 0.03 K/uL (0-1) Nucleated Red Blood Cells 0.0 % (0.0-0.19) Sodium Level 142 mmol/L (136-145) Potassium Level 3.5 mmol/L (3.5-5.1) Chloride Level 105 mmol/L (101-111) Carbon Dioxide Level 30 mmol/L (21-32) Blood Urea Nitrogen 24 mg/dL (7-18) H Creatinine 0.6 mg/dL (0.5-1.0) Glomerular Filtration Rate Calc 88 mL/min (>90) Random Glucose 121 mg/dL (70-105) H Total Calcium 8.7 mg/dL (8.5-10.1) Total Creatine Kinase 75 U/L (21-232) Labs Reviewed?: Yes EKG/XRAY/US/CT/MRI CT Scan Comment [place] [id number] [address] IMAGING REPORT Signed PATIENT: SAI WEN MR#: [id number] : 1940 SEX: F AGE: 84 LOCATION: [facility] ORDER 1142 STATUS: REG ER REPORT#: [id number] SERVICE 1141 REASON: ABD PAIN ORDERING PHYSICIAN: KIA HASTINGS MD PROCEDURE: ABD PEL WO - CT ABDOMEN/PELVIS W/O CONTRAST Exam Type: CT ABDOMEN/PELVIS W/O CONTRAST Clinical Information: ABD PAIN Comparison: None CT Dose Index (CTDI): 10.20 mGy Dose Length Product (DLP): 530.00 total mGy-cm PROTOCOL: Routine noncontrast helical scanning of the abdomen and pelvis was performed at 5mm collimation. Findings: No evidence of nephro or ureterolithiasis is found. No hydronephrosis or ureteral dilatation is seen. The lung bases are clear. The stomach is unremarkable. It shows no wall thickening. No gross ulceration is seen. It is not overly distended. There are no surrounding inflammatory changes. No wall lesions are identified to suggest cancer. The spleen is unremarkable. It is not enlarged. The pancreas shows normal anatomy. It is not fatty replaced. It shows no lesions. The pancreatic duct is not dilated. There is cholelithiasis and the gallbladder is hydropic. The adrenal glands are unremarkable. There is no enlargement. No lesions are noted. The liver is unremarkable. It shows no focal masses. The appendix is unremarkable. It shows no evidence of inflammation. No appendicolith is seen. The small bowel is unremarkable. There is no evidence of dilatation to suggest obstruction. No evidence of adynamic ileus is seen. There is no small bowel wall thickening to suggest enteritis. Abundant fecal matter is noted throughout the colon consistent with constipation. The urinary bladder is unremarkable. There is no wall thickening to suggest tumor or inflammation. There are no intraluminal calculi. There are no diverticula. There is no evidence of chronic bladder outlet obstruction. There is no evidence of urinary bladder distention to suggest urinary retention. The other pelvic structures are unremarkable. The bony and vascular structures are unremarkable for the patient's age. IMPRESSION: Hydropic gallbladder with cholelithiasis. Constipation. This study was performed using dose reduction techniques to include automated exposure control and/or adjustment of the mA and/or kV according to patient size. DICTATED BY: ANALIA RICE MD DATE: 10/16/241333 ELECTRONICALLY SIGNED BY: ANALIA RICE MD DATE: 10/16/248 MDM MDM: Differential diagnosis: Abdominal pain, constipation, gastritis, Patient is a an 84-year-old female coming in to be evaluated for lower abdominal discomfort. On CT image stool burden was found. Patient will be discharged with a diagnosis of constipation medication for constipation relief will be given. ED Course Orders Procedure Category Date Status Time Cbc With Differential LAB 10/16/24 Complete 11:41 Urinalysis Profile LAB 10/16/24 Logged 11:41 Creatine Kinase, Total LAB 10/16/24 Complete 11:41 Ct Abdomen/Pelvis W/O CT 10/16/24 Resulted Contrast 11:41 Basic Metabolic Panel LAB 10/16/24 Complete 11:41 Orphenadrine Citrate PHA 10/16/24 Complete (Norflex) 12:00 Current Medications Medications (Trade) Dose Ordered Sig/Rossana Route PRN Reason Start Time Stop Time Status Last Admin Dose Admin Orphenadrine Citrate (Norflex) 60 mg ONCE ONCE IM 10/16/24 12:00 10/16/24 12:01 DC 10/16/24 12:09 Vital Signs Date Time Temp Pulse Resp B/P (MAP) Pulse Ox O2 Delivery O2 Flow Rate FiO2 10/16/24 11:11 98.6 79 17 159/79 94 Room Air* 0 21 DX & DISP Disposition: Discharge Departure Impression: Primary Impression: Constipation Condition: Stable Scripts Lactulose (Lactulose) 10 Gram/15 Ml Solution 30 ML PO BID for constipation for 5 Days, #500 ML 0 Refills Prov: KIA HASTINGS MD 10/16/24 Additional Instructions: FOLLOW-UP WITH PRIMARY CARE PROVIDER IN 1 TO 2 DAYS. TAKE MEDICATIONS DIRECTED HERE IN THE EMERGENCY ROOM. OKAY TO CONTINUE HOME MEDICATIONS UNLESS OTHERWISE DISCUSSED DURING YOUR VISIT IN THE EMERGENCY ROOM TODAY. RETURN TO YOUR NEAREST EMERGENCY ROOM IF SYMPTOMS WORSEN OR IF THERE IS NO IMPROVEMENT. CALL 911 IF YOU NEED IMMEDIATE ASSISTANCE. TAKE TYLENOL [id number] NEEDED AND IF NO CONTRAINDICATIONS ARE PRESENT. INCREASE ORAL HYDRATION. A WOUND CULTURE OR URINE CULTURE WAS ORDERED HERE IN THE EMERGENCY ROOM DEPARTMENT PLEASE FOLLOW-UP WITH PRIMARY CARE PROVIDER AND ADVISE THEM TO GET REPEAT PORTS FROM OUR FACILITY. IF YOU HAD ANY PATI WRAP/SPLINTS THAT WERE APPLIED HERE, PLEASE DO NOT REMOVE THEM UNTIL YOU SEE YOUR PRIMARY CARE OR SPECIALTY. Referrals: Referrals: MAIRA JACKSON MD (PCP) Time of Disposition: 13:53 KIA HASTINGS MD Oct 16, 2024 11:43
[2024-10-16 11:58] LABS: BASOPHILS # (AUTO) 0.04 K/uL (0.00-0.20); BASOPHILS % (AUTO) 0.5 % (0.0-5.0); EOSINOPHILS % (AUTO) 1.3 % (0.0-8.0); HEMATOCRIT 33.7 % (36-48); IMMATURE GRANULOCYTE ABSOLUTE 0.03 K/uL (0-1); LYMPHOCYTES # (AUTO) 0.6 K/uL (1.0-4.8); LYMPHOCYTES % (AUTO) 7.8 % (21.0-51.0); MEAN CORPUSCULAR HEMOGLOBIN 30.7 pg (27.0-33.0); MEAN CORPUSCULAR HGB CONC 33.5 g/dL (32.0-36.0); MEAN CORPUSCULAR VOLUME 91.6 fL (79-99); MONOCYTES # (AUTO) 0.6 K/uL (0.1-1.0); MONOCYTES % (AUTO) 8.4 % (3.0-13.0); NEUTROPHILS # (AUTO) 6.2 K/uL (1.8-7.7); NEUTROPHILS % (AUTO) 81.6 % (40.0-77.0); PLATELET COUNT (AUTO) 281 K/uL (130-400); RED BLOOD CELL COUNT(AUTO) 3.68 MIL/uL (4.00-5.50); RED CELL DISTRIBUTION WIDTH 12.5 % (11.0-15.5); WHITE BLOOD COUNT (AUTO) 7.6 K/uL (4.8-10.8)
[2024-10-16 12:05] LABS: CREATININE 0.6 mg/dL (0.5-1.0); POTASSIUM 3.5 mmol/L (3.5-5.1)
[2024-10-16] MEDS: ORPHENADRINE 60MG/2ML IM ONE (12:09)
--- NOTE | 2024-10-16 13:26 | NUR ---
PT TAKEN TO CT SCAN
--- NOTE | 2024-10-16 13:38 | HMCIMG ---
Exam Type: CT ABDOMEN/PELVIS W/O CONTRAST Clinical Information: ABD PAIN Comparison: None CT Dose Index (CTDI): 10.20 mGy Dose Length Product (DLP): 530.00 total mGy-cm PROTOCOL: Routine noncontrast helical scanning of the abdomen and pelvis was performed at 5mm collimation. Findings: No evidence of nephro or ureterolithiasis is found. No hydronephrosis or ureteral dilatation is seen. The lung bases are clear. The stomach is unremarkable. It shows no wall thickening. No gross ulceration is seen. It is not overly distended. There are no surrounding inflammatory changes. No wall lesions are identified to suggest cancer. The spleen is unremarkable. It is not enlarged. The pancreas shows normal anatomy. It is not fatty replaced. It shows no lesions. The pancreatic duct is not dilated. There is cholelithiasis and the gallbladder is hydropic. The adrenal glands are unremarkable. There is no enlargement. No lesions are noted. The liver is unremarkable. It shows no focal masses. The appendix is unremarkable. It shows no evidence of inflammation. No appendicolith is seen. The small bowel is unremarkable. There is no evidence of dilatation to suggest obstruction. No evidence of adynamic ileus is seen. There is no small bowel wall thickening to suggest enteritis. Abundant fecal matter is noted throughout the colon consistent with constipation. The urinary bladder is unremarkable. There is no wall thickening to suggest tumor or inflammation. There are no intraluminal calculi. There are no diverticula. There is no evidence of chronic bladder outlet obstruction. There is no evidence of urinary bladder distention to suggest urinary retention. The other pelvic structures are unremarkable. The bony and vascular structures are unremarkable for the patient's age. IMPRESSION: Hydropic gallbladder with cholelithiasis. Constipation. This study was performed using dose reduction techniques to include automated exposure control and/or adjustment of the mA and/or kV according to patient size.
[2024-10-16] MEDS ORDERED: LACT10SO85 PO (13:54)
--- NOTE | 2024-10-16 14:24 | NUR ---
SPOKE TO FAMILY AT IN REGARDS TO PT, GAVE D/C INSTRUCTIONS, [id number] REPORTS SHE WILL BE BY TO [facility] IN ABOUT 30 MIN.
[2024-10-16] MEDS: LACTULOSE 20 GM/30 ML UDCUP PO ONE (14:44)
[2024-10-16 14:49] VITALS: BP 180/90; PULSE 80; RESP 17; TEMP 98.5; O2SAT 100
--- NOTE | 2024-10-16 14:50 | NUR ---
STILL PENDING ON FAMILY TO ARRIVED AND [employer] PT.
== END 2024-10-16 15:50 | disposition home or self-care (01) ==
LOC: EDH 11:09
DX: K59.00 Constipation, unspecified (principal); E11.9 Type 2 diabetes mellitus without complications; F41.9 Anxiety disorder, unspecified; F03.90 Unspecified dementia, unspecified severity, without behavioral disturbance, psychotic disturbance, mood disturbance, and anxiety; Z79.84 Long term (current) use of oral hypoglycemic drugs; Z79.899 Other long term (current) drug therapy
CPT/HCPCS: 36415; 74176; 80048; 82550; 85025; 96372; 99285; J2360